=== PATIENT | female | born 1940 | race Caucasian/White ===

== ENCOUNTER 2022-09-15 13:34 | Day surgery (SDC) | payer MEDICARE ==
[2022-09-15] MEDS ORDERED: DIPRIVAN 200 MG/20 ML IV ONE (16:00)
[2022-09-15] MEDS ORDERED: Lactated Ringers 1,000 ML IV ONE (16:18)
--- NOTE | 2022-09-15 17:04 | XRAY ---
Indication: Lumbar ISAMAR. Intraoperative fluoroscopy provided for 30 seconds. 3 digital spot image submitted for interpretation demonstrates needle tip posterior to lumbosacral junction airspace. Small amount of contrast injected for needle tip placement. Correlate with intraoperative findings/report.
--- NOTE | 2022-09-15 17:12 | XRAY ---
30 seconds of fluoroscopy was used in surgery for a lumbar ISAMAR.
== END 2022-09-15 16:43 | disposition home or self-care (01) ==
LOC: SDC-PAIN 13:34
PROVIDERS: ATTEND Psychiatry & Neurology Pain Medicine
DX: M54.16 Radiculopathy, lumbar region (principal); Z79.899 Other long term (current) drug therapy
CPT/HCPCS: 62323; 72100; 77003; J2704; Q9966

== ENCOUNTER → 2023-02-16 | Day surgery (SDC) | payer MEDICARE ==
[~2023-02-16] MED LIST: DIPRIVAN 200 MG/20 ML IV ONE; Decadron 4 MG INJ IV ONE; Lactated Ringers 1,000 ML IV ONE; MORPHINE SULFATE 2 MG INJ ONE; Sodium Chloride 0.9(Preservative Free) 10 ML IJ ONE
--- NOTE | 2023-02-16 18:46 | XRAY ---
Indication: Left L4-S1 transforaminal ISAMAR. Intraoperative fluoroscopy provided for 24 seconds. 4 digital spot image submitted for interpretation demonstrates posterior needle tips projecting over the expected left L4 and L5 nerve roots. Small amount of contrast injected for needle tip placement. Correlate with intraoperative findings/report.
--- NOTE | 2023-02-16 18:51 | XRAY ---
24 seconds of fluoroscopy was used in surgery for a left L4-S1 transforaminal ISAMAR.
== END ==
LOC: SDC-PAIN 13:25
PROVIDERS: ATTEND Psychiatry & Neurology Pain Medicine
DX: M54.16 Radiculopathy, lumbar region (principal)
CPT/HCPCS: 64483; 64484; 72100; 77002; J1100; J2270; J2704; Q9966